=== PATIENT | female | born 1990 ===

== ENCOUNTER → 2021-06-06 | Outpatient (CLI) | payer SELFPAY ==
[2021-06-09 13:13] LABS: CHLAMYDIA BY NAA Negative (Negative); GONOCOCCUS BY NAA Negative (Negative); TRICH VAG BY NAA Negative (Negative)
[2021-06-10 05:10] LABS: HSV-1 DNA Negative (Negative); HSV-2 DNA Negative (Negative)
== END | disposition home or self-care (01) ==
LOC: LAB SHORT 13:58
PROVIDERS: Physician Assistant
DX: N94.89 Other specified conditions associated with female genital organs and menstrual cycle (principal); N89.8 Other specified noninflammatory disorders of vagina
CPT/HCPCS: 86694; 86696; 87070; 87205; 87491; 87529; 87591; 87661